=== PATIENT | male | born 1950 | race Caucasian/White ===

== ENCOUNTER → 2018-02-24 | Outpatient (CLI) | payer MEDICARE, OTHER ==
[~2018-02-24] MED LIST: ASPIRIN325 PO; CARVEDILOL25 MG PO; CENTRUM SILVER1 EAC2 PO; CRESTOR40 MG PO; DEXILANT60 MG PO; DIOVAN 80 MG TA80 M1 PO; FISH OIL 1,001000 M2 PO; FLOMAX0.4 MG PO; HYDROCHLOROTH12.5 M1 PO; KEFLEX500 M1 PO; METOPROLOL ER-1 EAC2 PO; MICARDIS 80 MG80 MG PO; MOTION RELIEF25 MG PO
== END ==
LOC: M.ULTRA 08:30
DX: I65.23 Occlusion and stenosis of bilateral carotid arteries (principal); I70.0 Atherosclerosis of aorta; I11.9 Hypertensive heart disease without heart failure

== ENCOUNTER 2018-08-06 20:45 | Emergency (ER) | payer MEDICARE, OTHER ==
[~2018-08-06] VITALS: Ht 170.2 cm; Wt 66.2 kg
[~2018-08-06 20:45] MED LIST changes: -CRESTOR40 MG PO; -DIOVAN 80 MG TA80 M1 PO; -FLOMAX0.4 MG PO; -HYDROCHLOROTH12.5 M1 PO; -METOPROLOL ER-1 EAC2 PO; -MOTION RELIEF25 MG PO
[2018-08-06] MEDS ORDERED: DIOVAN 80 MG TA80 M1 PO ×2 (20:58→21:02)
[2018-08-06] MEDS ORDERED: METOPROLOL ER-1 EAC2 PO (21:01)
[2018-08-06] MEDS ORDERED: FLOMAX0.4 MG PO (21:02)
[2018-08-06] MEDS ORDERED: CRESTOR40 MG PO (21:02)
[2018-08-06] MEDS ORDERED: HYDROCHLOROTH12.5 M1 PO (21:02)
[2018-08-06 21:19] LABS: URINE BILIRUBIN NEGATIVE (Negative); URINE BLOOD 1+ (Negative); URINE CLARITY CLEAR; URINE COLOR YELLOW; URINE GLUCOSE-RANDOM NEGATIVE (Negative); URINE KETONES NEGATIVE (Negative); URINE LEUKOCYTES-REFLEX NEGATIVE (Negative); URINE NITRITE-REFLEX NEGATIVE (Negative); URINE PROTEIN 1+ (Negative); URINE SPECIFIC GRAVITY 1.025 (1.005-1.030); URINE UROBILINOGEN 0.2 E.U./dl (0.2-1.0)
[2018-08-06 21:36] LABS: BACTERIA-REFLEX 1-9 Few /HPF (None Seen); CRYSTALS None Seen /LPF (None Seen); HYALINE CASTS 4-10 Moderate /LPF (None Seen); URINE RBC 0-2 Rare /HPF (0-2)
[2018-08-06 21:37] LABS: MUCUS None Seen strn/LPF (None Seen); SQUAMOUS NONE SEEN /LPF (0-3); URINE WBC-REFLEX 6-15 Few /HPF (0-5)
[2018-08-06 21:39] LABS: ABSOLUTE BASOPHILS 0.1 thou/uL (0.0-0.2); ABSOLUTE EOSINOPHILS 0.1 thou/uL (0.0-0.7); ABSOLUTE LYMPHOCYTES 2.6 thou/uL (0.8-5.3); ABSOLUTE MONOCYTES 0.7 thou/uL (0.0-1.2); ABSOLUTE NEUTROPHILS 3.1 thou/uL (1.6-8.1); BASOPHILS 1.2 %; EOSINOPHILS 1.5 %; HEMATOCRIT 40.1 % (42.0-52.0); HEMOGLOBIN 13.5 gm/dL (14.0-18.0); LYMPHOCYTES 39.9 %; MCH 33.3 pg (26.0-34.0); MCHC 33.7 g/dL (28.0-37.0); MCV 98.9 fL (80.0-100.0); MONOCYTES 10.2 %; MPV 7.1 fl. (7.2-11.1); NUCLEATED RBCS 0 /100WBC; PLATELET COUNT* 297 thou/uL (150-400); POLYS 47.2 %; RBC 4.05 mil/uL (4.50-6.00); RDW-CV 14.4 % (10.5-14.5); WBC 6.6 thou/uL (4.0-11.0)
[2018-08-06 21:44] LABS: ANION GAP 12 mmol/L (7-16); BUN 28 mg/dL (7-18); CALCIUM 9.6 mg/dL (8.5-10.1); CHLORIDE 100 mmol/L (98-107); CO2 26 mmol/L (21-32); CREATININE 1.3 mg/dL (0.6-1.3); GLUCOSE 100 mg/dL (70-99); POTASSIUM 3.1 mmol/L (3.5-5.1); SODIUM 138 mmol/L (136-145)
[2018-08-06 21:48] LABS: PROTIME 9.9 Seconds (9.20-11.50)
[2018-08-06 21:55] LABS: ALBUMIN 3.6 g/dL (3.4-5.0); ALKALINE PHOSPHATASE 100 U/L (46-116); NT-PRO BRAIN NAT PEPTIDE 111 pg/mL (<300); SGOT 37 U/L (15-37); SGPT 36 U/L (30-65); TOTAL BILIRUBIN 0.2 mg/dL (<0.1-1.0); TOTAL PROTEIN 7.9 g/dL (6.4-8.2); TROPONIN-I LEVEL <0.06 ng/mL (<0.06)
[2018-08-06] MEDS ORDERED: MOTION RELIEF25 MG PO (22:59)
[2018-08-06 23:13] VITALS: BP 132/75
--- NOTE | 2018-08-09 09:50 | EKG ---
[place] [address] ELECTROCARDIOGRAM REPORT Name: JULIANNEBRUNA ANGELIQUE Room: [facility]#: [id number] Admission: 08/06/18 Attend Phys: Discharge: 08/06/18 Date of : 50 Report #: [id number] THIS REPORT FOR: //name// [facility] ED Test Date: 2018-08-06 Test Time: 21:20:46 Pat Name: BRUNA WHITAKER Department: Room: Gender: M Track Announcer: Johnson FERREIRA : 1950 Requested By: Chelo Mason Order Number: [id number] MD: Twan Bradley Measurements Intervals [place] Rate: 67 P: 48 WV: 170 QRS: -82 QRSD: 147 T: 48 QT: 423 QTc: 447 Interpretive Statements Sinus rhythm RBBB and LAFB Baseline wander in lead(s) V4 Compared to ECG 09/11/2014 07:26:13 Sinus tachycardia no longer present Electronically Signed On 08-09-2018 9:50:08 DISTRIBUTION CLERK by Twan Bradley [email or web address] <ELECTRONICALLY SIGNED> By: Twan Bradley MD, [facility] 08/09/18 0950 19 19 Twan Bradley MD, [facility] /EPI
== END 2018-08-06 23:14 | disposition home or self-care (01) ==
LOC: M.ERS 20:45
PROVIDERS: Emergency Medicine
DX: S01.81XA Laceration without foreign body of other part of head, initial encounter (principal); R42 Dizziness and giddiness; F10.129 Alcohol abuse with intoxication, unspecified; Y90.6 Blood alcohol level of 120-199 mg/100 ml; I10 Essential (primary) hypertension; M19.90 Unspecified osteoarthritis, unspecified site; F17.210 Nicotine dependence, cigarettes, uncomplicated; Z85.828 Personal history of other malignant neoplasm of skin; W18.39XA Other fall on same level, initial encounter; Y93.89 Activity, other specified; Y92.89 Other specified places as the place of occurrence of the external cause; Y99.8 Other external cause status

== ENCOUNTER → 2019-03-01 | Outpatient (CLI) | payer MEDICARE, OTHER ==
[~2019-03-01] MED LIST changes: +CRESTOR40 MG PO; +DIOVAN 80 MG TA80 M1 PO; +FLOMAX0.4 MG PO; +HYDROCHLOROTH12.5 M1 PO; +METOPROLOL ER-1 EAC2 PO; +MOTION RELIEF25 MG PO
--- NOTE | 2019-03-01 16:18 | CARDNUC ---
[place] [address] CARDIAC NUCLEAR IMAGING REPORT Name: WHITAKER,BRUNAREYES MERINO Room: [facility]#: [id number] Admission: 03/01/19 Attend Phys: Lucho Garcia, Discharge: Date of : 50 Date of Service: 03/01/19 1618 Report #: [id number] THIS REPORT FOR: //name// APPROVED REPORT Imaging Protocol: Rest Tc-99m/Stress Tc-99m 1 day Study performed: 03/01/2019 09:35:44 Indication: Palpitations , Arrhythmia, s/p MO, s/p PCI. Patient Location: Out-Patient Stress Tech: She Mccall Stress Nurse: Marely Levine RN NM Tech:MIGUEL Ca Ht: 5 ft 7 in Wt: 153 lbs BSA: 1.80 m2 BMI: 23.96 Medical History Medical History: Angina, Arrhythmia, CAD s/p CABG, CAD s/p stent, Current Smoker, HTN, Hyperlipidemia, RBBB, Weakness, Fatigue. Medications: Losartan, Metoprolol, ASA 81 MG, Rosuvastatin. Allergies: Niacin Cardiac Risk Factors: Age, Current Smoker, FHX of CAD, HTN, Hyperlipidemia, Smoking, RBBB. Previous Cardiac Procedures: Myocardial infarction, PCI. Pretest Chest Pain Characteristics: No chest pain Exercise History: Indeterminate Physical Disabilities: Hips Meds Held (24 hrs): Metoprolol. Resting Data Rest SPECT myocardial perfusion imaging was performed in supine position 30 minutes following the intravenous injection of 10.4 mCi of Tc-99m Sestamibi. Time of rest injection: 754 Date: 03/01/2019 The images were gated to evaluate regional wall motion and calculate left ventricular ejection fraction. Administration Route: IV Administration Site: Right Arm Pharmacologic Stress Pharmacologic stress test was performed by injecting Regadenoson 0.4 mg IV push over 10-15 seconds immediately [place] [address] CARDIAC NUCLEAR IMAGING REPORT Name: BRUNA WHITAKER Room: [facility]#: [id number] Admission: 03/01/19 Attend Phys: Lucho Garcia, Discharge: Date of : 50 Date of Service: 03/01/19 1618 Report #: [id number] injection of 34.7 mCi of Tc-99m Sestamibi. Time of stress injection: 954 Date: 03/01/2019 Administration Route: IV Administration Site: Right Arm Gated Stress SPECT was performed 40 minutes after stress injection. The images were gated to evaluate regional wall motion and calculate left ventricular ejection fraction. Prone imaging was performed. Stress Test Details Stress Test: Pharmacologic stress testing performed using 0.4 mg of regadenoson per 5 mL given IV over 10 seconds. Reason for pharmacologic stress test: physical limitation, bad hips.. HR Max Heart Rate (APMHR): 152 bpm Resting HR: 65 bpm Target HR (85% APMHR): 129 bpm Max HR Achieved: 124 bpm % of APMHR: 81 Recovery HR: 107 bpm HR response to stress: Normal HR response to stress BP Resting BP: 183/103 mmHg Max BP: 169/85 mmHg Recovery BP: 161/92 mmHg BP response to stress: Normal blood pressure response to stress. ECG Resting ECG: nsr bifasicular block Stress ECG: same ST Change: none Arrhythmia: none Recovery ECG: nsr bifasicular block Recovery ST Change: same [place] Arrhythmia: none Clinical Reason for Termination: Completed protocol Stress Symptoms: None Exercise duration: 00 min 00 sec Exercise capacity: 1.00 METs Nurse Comments 68 year old male presented with RBBB and HX [place] [address] CARDIAC NUCLEAR IMAGING REPORT Name: BRUNA WHITAKER Room: [facility]#: [id number] Admission: 03/01/19 Attend Phys: Lucho Garcia, Discharge: Date of : 50 Date of Service: 03/01/19 1618 Report #: [id number] tolerated sitting Lexiscan well. Recovery unremarkable with PO caffeine. Patient escorted by staff to Nuclear Medicine for images. Patient stable with no complaints at that time. Stress ECG Conclusion nondiagnostic Study Quality Study: Fair Artifact: Moderate Increased GI uptake Lung Uptake: Normal Study Data At rest, the left ventricular ejection fraction was 74%.. Post stress, the left ventricular ejection was 75%.. SSS: 7 SRS: 14 SDS: -7 TID = 0.67. Perfusion STRESS SPECT images show a small mild intensity inferior defect which is noted to be fixed when compared to the SPECT rest images. There is uniform uptake of tracer in all other segments. The prone set shows normalization of the inferior defect indicating it is likely artifact. No reversible defects are seen. Images were reviewed using Rollbar. Wall Motion normal in all segments Nuclear Conclusion ECG Findings: non-diagnostic Clinical Findings: negative for ischemia Nuclear Findings: negative for ischemia Exercise Capacity: not assessed Left Ventricular Function: normal Risk Study: low Negative perfusion nuclear stress test for ischemia or infarct[place] [address] CARDIAC NUCLEAR IMAGING REPORT Name: BRUNA WHITAKER Room: [facility]#: [id number] Admission: 03/01/19 Attend Phys: Lucho Garcia, Discharge: Date of : 50 Date of Service: 03/01/19 1618 Report #: [id number] <Conclusion> nondiagnostic <ELECTRONICALLY SIGNED> By: Lucho Garcia MD, [facility] 03/01/19 1618 17 17 Lucho Garcia MD, [facility] /INF
== END ==
LOC: M.NUC 08-05 13:44
DX: I25.10 Atherosclerotic heart disease of native coronary artery without angina pectoris (principal)

== ENCOUNTER → 2021-04-05 | Outpatient (CLI) | payer MEDICARE, OTHER ==
[2021-04-05 09:15] LABS: HEMATOCRIT 31.7 % (42.0-52.0); HEMOGLOBIN 10.5 gm/dL (14.0-18.0); MCH 26.5 pg (26.0-34.0); MCHC 33.1 g/dL (28.0-37.0); MCV 80.3 fL (80.0-100.0); MPV 6.3 fl. (7.2-11.1); NUCLEATED RBCS 0 /100WBC; PLATELET COUNT* 401 thou/uL (150-400); RBC 3.95 mil/uL (4.50-6.00); RDW-CV 20.8 % (10.5-14.5); WBC 10.1 thou/uL (4.0-11.0)
[2021-04-05 09:23] LABS: CALCIUM 9.9 mg/dL (8.5-10.1); CREATININE 1.5 mg/dL (0.6-1.3); POTASSIUM 3.9 mmol/L (3.5-5.1)
[2021-04-05 09:27] LABS: APTT 26.7 Seconds (25.0-31.3); INR 1.1; PROTIME 11.8 Seconds (9.20-11.50)
[2021-04-05 09:52] LABS: ABSOLUTE LYMPHOCYTES 0.4 thou/uL (0.8-5.3); ABSOLUTE MONOCYTES 0.2 thou/uL (0.0-1.2); ABSOLUTE NEUTROPHILS 9.5 thou/uL (1.6-8.1); PLATELET ESTIMATE ADEQUATE
== END ==
LOC: M.LAB 08:46 → M.ULTRA 10:00
PROVIDERS: ATTEND Internal Medicine Hematology & Oncology
DX: C78.01 Secondary malignant neoplasm of right lung (principal); C64.1 Malignant neoplasm of right kidney, except renal pelvis